=== PATIENT | female | born 1970 | race Caucasian/White ===

== ENCOUNTER 2017-02-20 13:02 | Emergency (ER) | payer SELFPAY ==
[~2017-02-20] VITALS: Ht 157.5 cm; Wt 103.5 kg
[2017-02-20] MEDS ORDERED: LABETALOL HCL 20MG/4ML CARPUJECT IV PRN (14:30)
[2017-02-20 14:36] LABS: BASOPHILS % 1.4 % (0.0-2.0); DIFFERENTIAL COMMENT 0; EOSINOPHILS % 1.9 % (0.0-5.0); HEMATOCRIT. 41.4 % (36.0-48.0); HEMOGLOBIN. 13.7 g/dL (12.0-16.0); LYMPHOCYTES % 37.9 % (20.0-50.0); MEAN CORPUSCULAR HEMOGLOBIN 25.8 pg (28.0-32.0); MEAN CORPUSCULAR HGB CONC 33.1 g/dL (31.0-37.0); MEAN CORPUSCULAR VOLUME 78.2 fL (81.0-99.0); MEAN PLATELET VOLUME 9.5 fl (7.4-10.4); MONOCYTES % 6.3 % (2.0-8.0); NEUTROPHILS % 52.5 % (40.0-76.0); PLATELET 193 x1000/uL (130-400); RED BLOOD CELL COUNT 5.29 mill/uL (4.2-5.4); RED CELL DISTRIBUTION WIDTH 15.8 % (11.6-14.6); WHITE BLOOD COUNT 8.9 x1000/uL (4.5-11.0)
[2017-02-20 14:46] LABS: INR 1.1; PROTHROMBIN TIME 10.9 sec
[2017-02-20 14:51] LABS: ANION GAP 14; CALCIUM 8.6 mg/dL (8.5-10.1); CARBON DIOXIDE 27 mEq/L (21-32); CHLORIDE 103 mEq/L (98-107); INDEX HEMOLYSI 1 (1-3); INDEX ICTERIC 1 (1-4); INDEX LIPEMIC 1 (1-3); NT PRO B-TYPE NATRIURETIC PEP 145 pg/mL (5-125); TROPONIN I < 0.02 ng/mL (0.00-0.04); UREA NITROGEN BLOOD 7 mg/dL (7-21); eGFR > 60 mL/min (>60)
[2017-02-20 15:02] VITALS: BP 148/76
== END 2017-02-20 15:32 | disposition home or self-care (01) ==
LOC: ER 14:32
DX: I10 Essential (primary) hypertension (principal)
CPT/HCPCS: 36415; 71010; 80048; 83880; 84484; 85025; 85610; 93005; 96374; 99285

== ENCOUNTER 2019-10-29 11:46 | Inpatient (IN) | payer MEDICAID ==
[~2019-10-29] VITALS: Ht 157.5 cm; Wt 99.8 kg
[2019-10-29] MEDS ORDERED: MORPHINE SULFATE 4 MG/ML CPJ (NOT FOR IM USE) IV STA (12:13)
[2019-10-29] MEDS ORDERED: ONDANSETRON HCL 4MG/2ML INJ IV STA (12:13)
[2019-10-29] MEDS ORDERED: SODIUM CHLORIDE 0.9% 1,000 ML IV ONE (12:13)
[2019-10-29] MEDS ORDERED: CLONIDINE 0.2MG TABLET PO ONE (12:15)
[2019-10-29 12:35] LABS: BASOPHILS % 0.9 % (0.0-2.0); EOSINOPHILS % 1.3 % (0.0-5.0); HEMATOCRIT. 42.2 % (36.0-48.0); HEMOGLOBIN. 14.3 g/dL (12.0-16.0); MEAN CORPUSCULAR HEMOGLOBIN 28.1 pg (28.0-32.0); MEAN CORPUSCULAR VOLUME 82.7 fL (81.0-99.0); MEAN PLATELET VOLUME 10.1 fl (7.4-10.4); MONOCYTES % 4.6 % (2.0-8.0); NEUTROPHILS % 68.2 % (40.0-76.0); PLATELET 212 x1000/uL (130-400); RED CELL DISTRIBUTION WIDTH 13.8 % (11.6-14.6)
[2019-10-29 12:40] LABS: CHLORIDE 105 mEq/L (98-107)
[2019-10-29 12:53] LABS: HCG SCREEN NEGATIVE
[2019-10-29] MEDS ORDERED: MORPHINE SULFATE 4 MG/ML CPJ (NOT FOR IM USE) IV ONE (14:00)
[2019-10-29] MEDS ORDERED: IOHEXOL-350 100 ML BOTTLE ONE (14:35)
[2019-10-29] MEDS ORDERED: IPRATROPIUM/ALBUTEROL 0.5-3(2.5)MG/3ML NEB NEB PRN (17:30)
[2019-10-29] MEDS ORDERED: ENOXAPARIN 40MG/0.4ML SYR SUBCUT SCH (17:30)
[2019-10-29] MEDS ORDERED: KETOROLAC 15MG/ML VIAL IV PRN (17:30)
[2019-10-29] MEDS ORDERED: LORAZEPAM 0.5MG TABLET PO PRN (17:30)
[2019-10-29] MEDS ORDERED: NITROGLYCERIN 0.4MG TABLET SL SL PRN (17:30)
[2019-10-29] MEDS ORDERED: ONDANSETRON HCL 4MG/2ML INJ IV PRN (17:30)
[2019-10-29] MEDS ORDERED: GUAIFENESIN 200MG/10ML SUGAR FREE UDC PO PRN (17:30)
[2019-10-29 20:00] VITALS: BP 146/90
[2019-10-29] MEDS ORDERED: DOCUSATE SODIUM 100MG CAPSULE PO PRN (20:00)
[2019-10-29] MEDS ORDERED: CLONIDINE 0.1MG TABLET PO PRN (20:00)
[2019-10-29] MEDS ORDERED: MAGNESIUM/ALUMINUM HYDROXIDE/SIMETHICONE 30ML UDC PO PRN (20:00)
[2019-10-29] MEDS: ACETAMINOPHEN 325MG TABLET PO PRN (20:14)
[2019-10-29] MEDS: SUCRALFATE 1 G/10 ML UDC PO SCH (20:15)
[2019-10-29] MEDS: METOPROLOL TARTRATE 25MG TABLET PO SCH (20:15)
[2019-10-29] MEDS: FAMOTIDINE 20MG TABLET PO SCH (20:15)
[2019-10-29 21:00] VITALS: BP 146/90
[2019-10-29] MEDS ORDERED: ZOLPIDEM TARTRATE 5MG TABLET PO PRN (21:00)
[2019-10-29] MEDS ORDERED: DEXTROSE 50% WATER 50ML SYRINGE IV PRN (23:00)
[2019-10-29] MEDS ORDERED: ATORVASTATIN CALCIUM 10MG TABLET PO SCH (23:00)
[2019-10-30] VITALS (8 sets, daily range): BP systolic 129–180; BP diastolic 74–103
[2019-10-30 00:54] LABS: CREATINE KINASE 43 IU/L (26-192)
[2019-10-30 01:36] LABS: CREATINE KINASE MB FRACTION < 1.0 ng/mL (0.5-3.6)
[2019-10-30] MEDS: SUCRALFATE 1 G/10 ML UDC PO SCH ×3 (06:31→17:10)
[2019-10-30] MEDS: INSULIN LISPRO 100 UNITS/ML SUBCUT SCH ×3 (06:34→17:40)
[2019-10-30] MEDS: BLOOD SUGAR DIAGNOSTIC STRIP TEST SCH ×3 (06:35→17:10)
[2019-10-30 07:01] LABS: CREATINE KINASE 37 IU/L (26-192)
[2019-10-30 07:02] LABS: CREATINE KINASE MB FRACTION < 1.0 ng/mL (0.5-3.6)
[2019-10-30] MEDS ORDERED: ENOXAPARIN 30MG/0.3ML SYR SUBCUT SCH (09:00)
[2019-10-30] MEDS ORDERED: ASPIRIN 325MG EC TABLET PO SCH (09:00)
[2019-10-30] MEDS: METOPROLOL TARTRATE 25MG TABLET PO SCH (09:16)
[2019-10-30] MEDS: FAMOTIDINE 20MG TABLET PO SCH (09:16)
[2019-10-30] MEDS: ACETAMINOPHEN 325MG TABLET PO PRN (12:11)
== END 2019-10-30 16:40 | disposition home or self-care (01) | DRG 203 ==
LOC: ER 12:05 → 8WST 16:53 → EDBEDREQTM 16:58 → EDBEDREQ 16:58 → ENRESERV 17:51
PROVIDERS: ADMIT Internal Medicine; ATTEND Internal Medicine
DX: R07.89 Other chest pain (principal); E83.51 Hypocalcemia; E11.9 Type 2 diabetes mellitus without complications; E66.9 Obesity, unspecified; I10 Essential (primary) hypertension; Z68.41 Body mass index [BMI] 40.0-44.9, adult; Z90.49 Acquired absence of other specified parts of digestive tract
CPT/HCPCS: 36415; 71045; 71275; 74174; 80061; 82550; 82553; 82962; 83036; 83880; 84484; 84703; 93005; 96374; 99285; J1650; J1815; J2270; J2405; J7030; Q9967